=== PATIENT | female | born 1980 | race Caucasian/White ===

== ENCOUNTER 2021-05-27 20:55 | Emergency (ER) | payer SELFPAY ==
[~2021-05-27] VITALS: Ht 165.1 cm; Wt 61.0 kg
[~2021-05-27 20:55] MED LIST: IBUP-2028 PO
[2021-05-27] MEDS ORDERED: KETOROLAC 60MG/2ML VIAL IM ONE (23:15)
[2021-05-28] MEDS ORDERED: IBUP-2029 MT (01:12)
[2021-05-28 01:37] VITALS: BP 118/68
== END 2021-05-28 01:38 | disposition home or self-care (01) ==
LOC: ER 20:55
DX: S06.0X0A Concussion without loss of consciousness, initial encounter (principal); M54.2 Cervicalgia; M79.3 Panniculitis, unspecified; R03.0 Elevated blood-pressure reading, without diagnosis of hypertension; Y07.411 Sister, perpetrator of maltreatment and neglect; Y08.02XA Assault by strike by baseball bat, initial encounter; Y93.89 Activity, other specified; Y92.89 Other specified places as the place of occurrence of the external cause; E05.90 Thyrotoxicosis, unspecified without thyrotoxic crisis or storm
CPT/HCPCS: 70450; 72125; 93005; 96372; 99285; J1885

== ENCOUNTER 2021-08-10 18:44 | Emergency (ER) | payer SELFPAY ==
[~2021-08-10] VITALS: Ht 170.2 cm; Wt 66.0 kg
[~2021-08-10 18:44] MED LIST changes: +IBUP-2029 MT
[2021-08-10 18:52] VITALS: BP 100/56
== END 2021-08-10 22:09 | disposition left against medical advice (07) ==
LOC: ER 18:44
DX: R10.9 Unspecified abdominal pain (principal); Z53.21 Procedure and treatment not carried out due to patient leaving prior to being seen by health care provider

== ENCOUNTER 2023-04-16 00:10 | Emergency (ER) | payer OTHER ==
[~2023-04-16] VITALS: Ht 172.7 cm; Wt 87.0 kg
[2023-04-16 00:22] VITALS: BP 128/87; PULSE 89; RESP 17; TEMP 98.7; O2SAT 99
== END 2023-04-16 00:49 | disposition left against medical advice (07) ==
LOC: ER 00:10
DX: F10.129 Alcohol abuse with intoxication, unspecified (principal); Y90.9 Presence of alcohol in blood, level not specified
CPT/HCPCS: 99283

== ENCOUNTER 2025-09-17 08:54 | Emergency (ER) | payer OTHER ==
[~2025-09-17] VITALS: Ht 170.2 cm; Wt 98.0 kg
[~2025-09-17 08:54] MED LIST changes: +IBUP-1455 MT; -IBUP-2029 MT
[2025-09-17 09:12] VITALS: TEMP 36.8; O2SAT 98
[2025-09-17] MEDS ORDERED: METH4TAB95 MT (11:25)
[2025-09-17 11:57] VITALS: BP 124/88; PULSE 78; RESP 16; O2SAT 100
== END 2025-09-17 12:00 | disposition home or self-care (01) ==
LOC: ER 08:54
DX: R11.10 Vomiting, unspecified (principal); Z98.890 Other specified postprocedural states; Z79.899 Other long term (current) drug therapy
CPT/HCPCS: 70360; 71045; 81025; 99284